=== PATIENT | male | born 1960 | race Caucasian/White ===

== ENCOUNTER 2017-01-27 16:58 | Inpatient (IN) | payer BC ==
[~2017-01-27] VITALS: Ht 180.3 cm; Wt 79.4 kg
--- NOTE | ~2017-01-27 | CN ---
Consultation Report [facility] [address] [place]. [address] NAME: ALIYA CARRENO : 60 STATUS : ADM Carlyle PAT#: [id number] AGE: 56 ADM/REG DATE : 01/27/17 MR#: [id number] REPORT SERV DATE: 01/28/17 DICTATED BY: ANDREW MENDOZA DATE: 01/28/17 REPORT STATUS : Draft TRANSCRIBED BY: MODL DATE: 01/28/17 HOSPITALIST CONSULTATION. DATE OF CONSULTATION: 01/27/2017 REASON FOR CONSULTATION: Medical management per Dr. Cy Olivares. HISTORY OF PRESENT ILLNESS: This is an awake, alert, and oriented 56-year-old, male, who was admitted today to the service of Dr. Olivares for persistent chest pain with abnormal stress test. We have been consulted for medical management. The patient presented initially to [facility] on Saturday01/25/2017 for chest pain and was found to have an abnormal stress test. The patient left [facility] prior to any further work up. He presented to [facility] ER for persistent chest pain and is being admitted for further evaluation. The patient currently complains of intermittent substernal chest pain and also generalized headache with onset of headache prior to arrival. The headache has no exacerbating or relieving factors. At this time, the patient denies palpitations, dyspnea, dizziness, vision disturbances, edema, abdominal pain, nausea, vomiting, diarrhea, constipation, or changes in appetite or urination. PAST MEDICAL HISTORY: Significant for. 1. Type 2 insulin-dependent diabetes mellitus. 2. Depression. 3. Drug abuse. 4. Tobacco abuse. PAST SURGICAL HISTORY: Significant for. 1. Back surgery, 2005. 2. Oral surgery, multiple, most recent surgery two weeks ago. The patient reports PCP is Dr. Mike Corcoran, with last visit greater than one year ago. The patient denies following regularly with any medical specialities. SOCIAL HISTORY: The patient is single and lives at home alone. 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 He is a daily smoker, smoking one pack per day for 40 years. He is a former alcohol and drug abuser reporting sobriety x32 years. FAMILY HISTORY: Mother is currently 86 years old with no known medical history. Father at age 59 of an aortic aneurysm. The patient reports a paternal aunt and uncle both had unknown types of cancer. ALLERGIES: NO KNOWN ALLERGIES. HOME MEDICATIONS: Consultation Report [address] [place]. [address] NAME: ALIYA CARRENO : 60 STATUS : ADM Carlyle PAT#: [id number] AGE: 56 ADM/REG DATE : 01/27/17 MR#: [id number] REPORT SERV DATE: 01/28/17 DICTATED BY: ANDREW MENDOZA DATE: 01/28/17 REPORT STATUS : Draft TRANSCRIBED BY: JOSE DE JESUS DATE: 01/28/17 1. Aspirin 325 mg p.o. daily. 2. Suboxone 8 mg-2 mg tablet 1.25 tablets p.o. at bedtime. 3. Tresiba FlexTouch 12 units subcutaneous b.i.d. 4. Zoloft 100 mg p.o. at bedtime. REVIEW OF SYSTEMS: A complete 10-point review of systems was negative except as per HPI. PHYSICAL EXAMINATION: VITAL SIGNS: Temperature 97.7, pulse 77, respiratory rate 16, blood pressure 124/71, SpO2 97% on room air. GENERAL: Well-appearing male, in no acute distress. NEURO: Awake, alert, and oriented x3 without focal deficit. PERRL at 4. Moves all extremities x4 spontaneously and to command. HEENT: Normocephalic, atraumatic without lymphadenopathy. NECK: Supple. No JVD. LUNGS: CTA in all lung [place] with normal respiratory effort. CARDIOVASCULAR: Regular rate and rhythm. S1 and S2 auscultated. ABDOMEN: Soft, round, and nontender. Bowel sounds active in all quadrants. No masses. EXTREMITIES: No cyanosis or edema. Cap refill within normal limits. Distal pulses equal and palpable. PSYCH: Normal affect. SKIN: Clean, dry, and intact, with mucous membranes pink and moist. PERTINENT LABORATORY DATA: WBC 4.1, H and H 13.2 and 36.6, blood glucose was 400, with a repeat glucose after treatment 238. Troponins were negative at [facility] as well as here. PERTINENT IMAGING: EKG on arrival was interpreted by Dr. Olivares and determined to be within normal limits. Of note, the patient's EF was 55% on 01/25/2017 per [facility] records. ASSESSMENT AND PLAN: 1. Insulin-dependent diabetes mellitus type 2. This is chronic and not well controlled with concern for noncompliance. The patient is unaware of his last hemoglobin A1c. At this time, we will continue current treatment ordered by Dr. Olivares and monitor his labs. We will adjust treatment as indicated. We will add a hemoglobin A1c to a.m. labs to assist with treatment decisions. We will also ask for a material control analyst consult to help the patient better understand his disease process and management. 2. Depression, we will continue current medications as ordered by the primary team. We will monitor labs and provide supportive care as indicated. 3. History of drug abuse. We will continue the current Suboxone as ordered by the primary team and monitor the patient. We will attempt to avoid all opiate analgesia if possible inappropriate for care during this admission. 4. Tobacco abuse. We will offer nicotine replacement. Encouraged smoking cessation. The patient is not yet ready to quit smoking cigarettes. 5. Chest pain. We will follow with the primary team and monitor labs and vital signs. Consultation Report [address] [place]. [address] NAME: ALIYA CARRENO : 60 STATUS : ADM Carlyle PAT#: [id number] AGE: 56 ADM/REG DATE : 01/27/17 MR#: [id number] REPORT SERV DATE: 01/28/17 DICTATED BY: ANDREW MENDOZA DATE: 01/28/17 REPORT STATUS : Draft TRANSCRIBED BY: JOSE DE JESUS DATE: 01/28/17 Thank you for this consult. We are pleased to follow this patient with you. This consult was completed through thorough review of [facility], old records, [employer], current chart, as well as thorough interview with the patient. This consult was completed in conjunction with and dictated for collaborating physician Dr. Andrew Mendoza. DICTATED BY: Isabell Hernandez NP [facility]/JOSE DE JESUS Andrew Mendoza M.D. / [id number] CC: Kenton Goel M.D.
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
[~2017-01-27 16:58] MED LIST: [UNRECOGNIZED DRUG - REMARK]; [UNRECOGNIZED DRUG - REMARK]
[2017-01-27 18:16] LABS: BASOPHILS 0.2 %; BASOPHILS ABSOLUTE 0.01 10/3/uL (0.0-0.16); EOSINOPHILS 2.4 %; HEMOGLOBIN 13.2 g/dL (13.6-17.8); IMMATURE GRANULOCYTES 0.2 %; IMMATURE GRANULOCYTES ABSOLUTE 0.01 10/3/uL (0.0-0.11); LYMPHOCYTES 44.7 %; LYMPHOCYTES ABSOLUTE 1.83 10/3/uL (0.67-4.30); MEAN CORPUS HGB CONC 36.1 g/dL (32.0-36.0); MEAN CORPUSCULAR HEMOGLOB 29.5 pg (26.0-34.0); MEAN CORPUSCULAR VOLUME 81.9 fL (80-100); MEAN PLATELET VOLUME 9.5 fL (9.2-13.0); MONOCYTES 5.9 %; MONOCYTES ABSOLUTE 0.24 10/3/uL (0.21-1.20); NEUTROPHILS 46.6 %; PLATELET COUNT 152 10/3/uL (150-400); RBC DISTRIBUTION WIDTH 13.7 % (12.0-16.0); RED CELL COUNT 4.47 10/6/uL (4.7-6.1); WHITE BLOOD CELLS 4.1 10/3/uL (4.5-10.5)
[2017-01-27 18:17] LABS: HEMATOCRIT 36.6 % (40.0-51.0); MANUAL DIFF NO %
[2017-01-27 18:24] LABS: PROTIME (NOT ORD) 12.8 SEC (12.0-14.5)
[2017-01-27 18:33] LABS: BUN (BLOOD UREA NITROGEN) 9 MG/DL (6-23); CALCIUM, SERUM 8.5 MG/DL (8.5-10.4); CHEST PAIN PROFILE TAT 0 Hrs 23 Mins; CHLORIDE, SERUM 99 MMOL/L (96-112); CO2 (CARBON DIOXIDE) 29 MMOL/L (24-34); CREATININE 0.82 MG/DL (0.70-1.30); GFR AFRICAN AMERICAN 115 ML/MIN (>=60); GFR NON AFRICAN AMERICAN 99 ML/MIN (>=60); POTASSIUM, SERUM 4.1 MMOL/L (3.5-5.3); TROPONIN I <0.02 NG/ML (<0.05)
[2017-01-27 18:34] LABS: GLUCOSE, SERUM 400 MG/DL (60-99); SODIUM, SERUM 135 MMOL/L (135-148)
[2017-01-27] MEDS ORDERED: ASAB PO (20:20)
[2017-01-27] MEDS ORDERED: ZOL100 PO (20:21)
[2017-01-27] MEDS ORDERED: SUBOXONE 8 MG-1 EACH PO (20:22)
[2017-01-27] MEDS ORDERED: TRESIBA FL100 UNIT/1 SQ (20:35)
[2017-01-28 01:43] LABS: ASCORBIC ACID (UR NOT ORDER) NEG (NEG); BILIRUBIN, URINE NEGATIVE (NEG); KETONE, URINE NEGATIVE (NEG); LEUKOCYTE ESTERASE(NOT OR NEG (NEG); WBC (NOT ORDERED) (RFLEX) < 1 (0-5)
[2017-01-28 01:44] LABS: BASOPHILS 0.2 %; BASOPHILS ABSOLUTE 0.01 10/3/uL (0.0-0.16); EOSINOPHILS 2.2 %; EOSINOPHILS ABSOLUTE 0.12 10/3/uL (0.0-0.53); HEMATOCRIT 34.2 % (40.0-51.0); HEMOGLOBIN 12.2 g/dL (13.6-17.8); IMMATURE GRANULOCYTES 0.2 %; IMMATURE GRANULOCYTES ABSOLUTE 0.01 10/3/uL (0.0-0.11); LYMPHOCYTES 41.3 %; LYMPHOCYTES ABSOLUTE 2.24 10/3/uL (0.67-4.30); MANUAL DIFF NO %; MEAN CORPUS HGB CONC 35.7 g/dL (32.0-36.0); MEAN CORPUSCULAR HEMOGLOB 29.2 pg (26.0-34.0); MEAN CORPUSCULAR VOLUME 81.8 fL (80-100); MEAN PLATELET VOLUME 9.6 fL (9.2-13.0); MONOCYTES 5.7 %; MONOCYTES ABSOLUTE 0.31 10/3/uL (0.21-1.20); NEUTROPHILS 50.4 %; NEUTROPHILS ABSOLUTE 2.73 10/3/uL (2.02-8.40); PLATELET COUNT 155 10/3/uL (150-400); RBC DISTRIBUTION WIDTH 13.8 % (12.0-16.0); RED CELL COUNT 4.18 10/6/uL (4.7-6.1); WHITE BLOOD CELLS 5.4 10/3/uL (4.5-10.5)
[2017-01-28 02:01] LABS: BUN (BLOOD UREA NITROGEN) 11 MG/DL (6-23); CALCIUM, SERUM 8.2 MG/DL (8.5-10.4); CHLORIDE, SERUM 103 MMOL/L (96-112); CHOL/HDL RATIO(NOT ORDER) 8.8 (0-5); CHOLESTEROL 292 MG/DL (< 200); CO2 (CARBON DIOXIDE) 29 MMOL/L (24-34); CREATININE 0.72 MG/DL (0.70-1.30); GFR AFRICAN AMERICAN 121 ML/MIN (>=60); GFR NON AFRICAN AMERICAN 104 ML/MIN (>=60); HDL CHOLESTEROL 33 MG/DL (> 39); LDL CHOLESTEROL 220 MG/DL (< 130); NON-HDL CHOLESTEROL 259 MG/DL (< 160); POTASSIUM, SERUM 4.3 MMOL/L (3.5-5.3); SGPT(ALT) 27 U/L (5-65); SODIUM, SERUM 138 MMOL/L (135-148); TRIGLYCERIDE 195 MG/DL (< 150); TROPONIN I <0.02 NG/ML (<0.05)
[2017-01-28 02:04] LABS: GLUCOSE, SERUM 274 MG/DL (60-99)
[2017-01-29] MEDS ORDERED: PRIN5 PO (10:05)
[2017-01-29] MEDS ORDERED: BRILINTA90 MG PO (10:05)
[2017-01-29] MEDS ORDERED: DIABET2.5 PO (10:06)
[2017-01-29] MEDS ORDERED: COREG3 PO (10:06)
[2017-01-29] MEDS ORDERED: LIPITOR40 PO (10:07)
== END 2017-01-29 10:15 | disposition home or self-care (01) | DRG 247 ==
LOC: ER 16:58 → SSU1 21:16 → CDU2 21:16 → CDU1 21:16 → CDU2 22:03 → SSU1 01-28 14:33
PROVIDERS: Internal Medicine Cardiovascular Disease; Specialist
PROC: B2111ZZ Fluoroscopy of Multiple Coronary Arteries using Low Osmolar Contrast (ICD-10-PCS; principal; 2017-01-28)
PROC: 027035Z Dilation of Coronary Artery, One Artery with Two Drug-eluting Intraluminal Devices, Percutaneous Approach (ICD-10-PCS; principal; 2017-01-28)
PROC: 4A023N7 Measurement of Cardiac Sampling and Pressure, Left Heart, Percutaneous Approach (ICD-10-PCS; principal; 2017-01-28)
DX: I25.110 Atherosclerotic heart disease of native coronary artery with unstable angina pectoris (principal); I24.9 Acute ischemic heart disease, unspecified; E11.65 Type 2 diabetes mellitus with hyperglycemia; F17.210 Nicotine dependence, cigarettes, uncomplicated; E78.5 Hyperlipidemia, unspecified; F32.9 Major depressive disorder, single episode, unspecified; F19.10 Other psychoactive substance abuse, uncomplicated; Z95.5 Presence of coronary angioplasty implant and graft; Z91.14 Patient's other noncompliance with medication regimen; Z79.4 Long term (current) use of insulin; Z79.82 Long term (current) use of aspirin; Z79.899 Other long term (current) drug therapy
CPT/HCPCS: 71010; 80048; 80061; 81001; 82962; 83036; 83735; 84460; 84484; 85025; 85347; 85610; 85730; 93005; 93458; 96374; 99152; 99153; 99285; A9270-GY; C1725; C1769; C1874; C1887; C1894; C9600; C9601; J0583; J2250; J3010; Q9967